=== PATIENT | male | born 1975 | race Caucasian/White ===

== ENCOUNTER 2016-06-23 12:54 | Emergency (ER) | payer BC ==
[~2016-06-23] VITALS: Ht 175.3 cm; Wt 100.0 kg
[2016-06-23 12:55] VITALS: BP 143/80; PULSE 80; RESP 16; TEMP 97.9; O2SAT 99
--- NOTE | 2016-06-23 14:20 | PD ---
HPI Chief Complaint: Injury Time Seen by Provider: 14:19 Travel History International Travel<30 days: No Contact w/Intl Traveler<30days: No Traveled to known affect area: No History of Present Illness HPI 40-year-old male presents to emergency Department with complaint of pain and swelling to his left great toe "knuckle" that started last night. Denies injury. He said he felt like he needed to pop his toe last night and when he woke up this morning he tried to put pressure on his foot to walk and had severe pain. The pain has progressed throughout the day. He denies fever, chills, nausea, vomiting. Denies paresthesias, loss of sensation, decreased range of motion, decreased strength to the affected extremity. Reports decreased range of motion to the toe secondary to pain and swelling. Denies history of gout. No known allergies. Denies significant past medical history. No other modifying factors or associated signs and symptoms. PFSH Social History Tobacco Use: No Allergies-Medications (Allergen,Severity, Reaction): Coded Allergies: No Known Allergies (Unverified , 06/23/16) Reported Meds & Prescriptions Reported Meds & Active Scripts Active Naproxen 500 Mg Tab 500 Mg PO BID 7 Days Deltasone (Prednisone) 20 Mg Tab 40 Mg PO DAILY 4 Days start 06/24/2016 Keflex (Cephalexin) 500 Mg Cap 500 Mg PO Q6H 10 Days Bactrim DS (Sulfamethoxazole-Trimethoprim) 800-160 Mg Tab 1 Tab PO BID 10 Days Review of Systems Except as stated in HPI: all other systems reviewed are Neg Physical Exam Narrative GENERAL: Well-nourished, well-developed male patient, in no acute distress; afebrile, nontoxic-appearing SKIN: Warm and dry. Left foot dorsal great toe with mild erythema and mild edema extending into the metatarsal region; with warmth to touch. Tender on palpation. No abscess noted. Left lower extremity supple and non-tense with 2 + pedal pulses and sensory intact. No noted abrasions, open wounds, puncture wounds in between the toes, top of foot, or bottom of the foot. HEAD: Atraumatic. Normocephalic. EYES: Pupils equal and round. No scleral icterus. No injection or drainage. ENT: Mucosa pink and moist. No erythema or exudates. NECK: Trachea midline. No lymphadenopathy. CARDIOVASCULAR: Regular rate. RESPIRATORY: No accessory muscle use. GASTROINTESTINAL: Rounded. MUSCULOSKELETAL: No obvious deformities. No clubbing. No cyanosis. No edema. NEUROLOGICAL: Awake and alert. Oriented 3. No obvious cranial nerve deficits. Motor grossly within normal limits. Normal speech. Moves all extremities. 5/5 strength to all extremities. PSYCHIATRIC: Appropriate mood and affect; insight and judgment normal. Data Data Last Documented VS Vital Signs Date Time Temp Pulse Resp B/P Pulse Ox O2 Delivery O2 Flow Rate FiO2 06/23/16 12:55 97.9 80 16 143/80 99 Orders Foot, Complete ([id number]) (06/23/16 14:20) Ketorolac Inj (Toradol Inj) (06/23/16 14:30) Crutches (06/23/16 15:02) Prednisone (Deltasone) (06/23/16 15:15) MDM Medical Decision Making Medical Screen Exam Complete: Yes Emergency Medical Condition: Yes Medical Record Reviewed: Yes Differential Diagnosis Cellulitis, gout, less likely septic joint Narrative Course 40-year-old male with what appears to either be a gout exacerbation or possible cellulitis to left great toe and metatarsal region. Denies injury. He denies history of gout. Patient is afebrile nontoxic appearing. He denies fever, chills, nausea, vomiting. Left lower extremity is supple and non-tense with 2+ pedal pulses and sensory intact. Toradol administered in the ER. Left foot x- ray ordered to rule out acute process. 1457: Left foot x-ray concludes Unremarkable examination of the left foot. I will treat the patient for possibilities of both cellulitis and gout. Keflex, Bactrim, naproxen, Deltasone prescribed for home. Crutches provided for support. Instructed patient to follow up with primary care provider. Patient verbalizes understanding and agreement with treatment plan. Patient is medically cleared and stable for discharge. Discussed reasons to return to the emergency department. Patient agrees with treatment plan. The patients vital signs are stable and the patient is stable for outpatient follow-up and treatment. Patient discharged home, stable and in no acute distress. Diagnosis Primary Impression: Left foot pain Referrals: Primary Care Physician Patient Instructions: Cellulitis (ED), Crutch Instructions (ED), General Instructions, Gout (ED) Departure Forms: Tests/Procedures, Work Release Enter return to work date: Jun 29, 2016 Additional Instructions: Antibiotics as prescribed Oral steroids as prescribed Naproxen as prescribed Rest Elevate affected extremity Avoid red meat, shellfish, alcohol, and other triggering foods to decrease risk of gout flare-ups Follow-up with your primary care provider Return to the emergency department with worsening of symptoms Med/Other Pt SpecificInfo: Prescription(s) given Scripts Naproxen 500 Mg [id number] Mg PO BID 7 Days Ref 0 Prov:Nichole Mendosa 06/23/16 Prednisone (Deltasone)20 Mg Tab40 Mg PO DAILY 4 Days Ref 0 start 06/24/2016 Prov:Nichole Mendosa 06/23/16 Cephalexin (Keflex)500 Mg [id number] Mg PO Q6H 10 Days Ref 0 Prov:Nichole Mendosa 06/23/16 Sulfamethoxazole-Trimethoprim (Bactrim DS)800-160 Mg Tab1 Tab PO BID 10 Days Ref 0 Prov:Nichole Mendosa 06/23/16 Disposition: 01 DISCHARGE HOME Condition: Stable Nichole Mendosa Jun 23, 2016 14:19
[2016-06-23] MEDS ORDERED: KETOROLAC TROMETHAMINE 60 MG/2 ML (IM) VIAL IM ONE (14:30)
--- NOTE | 2016-06-23 14:52 | RADRPT ---
EXAM DATE/TIME: 06/23/2016 14:41 [facility] COMPARISON: No previous studies available for comparison. INDICATIONS : Left foot inflammation for 2 days. MEDICAL HISTORY : None. SURGICAL HISTORY : None. ENCOUNTER: Initial ACUITY: 2 days PAIN SCORE: 5/10 LOCATION: Left Foot FINDINGS: Three view examination of the left foot demonstrates no soft tissue swelling, dislocation, or fractur e. The tarsal bones appear intact. The interphalangeal and metatarsophalangeal joints are intact. The calcaneus is intact. Bony mineralization is normal. CONCLUSION: Unremarkable examination of the left foot. Isaiah Ocampo Jr., MD on June 23, 2016 at 14:41 Board Certified Radiologist. This report was verified electronically.
[2016-06-23] MEDS ORDERED: NAPR500T PO (15:01)
[2016-06-23] MEDS ORDERED: CEPH-460 PO (15:01)
[2016-06-23] MEDS ORDERED: PRED-503 PO (15:01)
[2016-06-23] MEDS ORDERED: BACT800T5 PO (15:01)
[2016-06-23] MEDS ORDERED: predniSONE 20 MG TAB PO ONE (15:15)
== END 2016-06-23 15:31 | disposition home or self-care (01) ==
LOC: NETRI 12:54
DX: M79.672 Pain in left foot (principal)
CPT/HCPCS: 73630; 96372; 99283; E0113; J1885; J7512